=== PATIENT | female | born 1995 | race Two or more races ===

== ENCOUNTER 2021-12-22 03:06 | Inpatient (IN) ==
[2021-12-22] MEDS ORDERED: OXYTOCIN 30 UNITS/500 ML BAG IV PRN ×2 (03:33→10:51)
[2021-12-22] MEDS: LACTATED RINGER'S 1,000 ML IV PRN ×2 (03:45→04:45)
[2021-12-22 03:54] LABS: Hematocrit (blood only) 37.3 % (37-47); Hemoglobin 12.6 g/dL (12.0-16.0); Mean Corpuscular Hemoglobin 28.8 pg (25-34); Mean Corpuscular Hgb Conc 33.8 g/dL (32-36); Mean Corpuscular Volume 85.4 fL (80-100); Mean Platelet Volume 9.5 fL (7.4-10.4); Platelet Count 243 K/uL (130-400); RDW Coefficient of Variation 13.6 % (11.5-14.5); RDW Standard Deviation 42.2 fL (36.4-46.3); Red Blood Count 4.37 M/uL (4.2-5.4); White Blood Count 6.34 K/uL (4.8-10.8)
[2021-12-22] MEDS ORDERED: fentaNYL citrate 100 MCG/2 ML VIAL ONE (04:34)
[2021-12-22] MEDS ORDERED: ePHEDrine sulfate 50 MG/ML AMP ONE (04:34)
[2021-12-22] MEDS ORDERED: SODIUM CHLORIDE 0.9% INJ 10 ML VIAL ONE (04:34)
[2021-12-22] MEDS ORDERED: fentaNYL 2MCG/ML ROPIVACAINE 1.25MG/ML 100 ML BAG EPI ONE (04:35)
[2021-12-22] MEDS ORDERED: BUPIVACAINE 0.25% 30 ML VIAL ONE (04:35)
[2021-12-22] MEDS ORDERED: ONDANSETRON INJ 2 MG/ML 2 ML VIAL IV PRN (04:48)
[2021-12-22] MEDS ORDERED: NALOXONE HCL 0.4 MG/1 ML VIAL/CARP IV PRN (04:48)
[2021-12-22] MEDS ORDERED: diphenhydrAMINE 50 MG/ML VIAL IV PRN (04:48)
[2021-12-22] MEDS ORDERED: NALBUPHINE HCL INJ 10 MG/ML AMP IV PRN (04:48)
[2021-12-22] MEDS ORDERED: NALOXONE HCL 1 MG in SODIUM CHLORIDE 0.9% 1000ML 1,000 ML IV PRN (04:48)
[2021-12-22] MEDS ORDERED: ePHEDrine sulfate 50 MG/ML AMP IV PRN (04:48)
[2021-12-22] MEDS ORDERED: fentaNYL 2MCG/ML ROPIVACAINE 1.25MG/ML 100 ML BAG EPI PRN (04:48)
--- NOTE | 2021-12-22 04:52 | Anesthesiology Consultation ---
Date of Service December 22, 2021 Assessment & Plan Chart Review Chart Review: Patient NOT seen in Pre Admission Testing and Acceptable Risk for Labor Epidural Consults Requested none ASA ASA2 Proposed Anesthesia Anesthesia Type: Labor Epidural and CSE Risk / Benefits Reviewed With: PT / POA / Parent / Guardian, Accepts Plan and Informed Consent Obtained History Height/Weight Height: 5 ft 4 in Weight: 68.492 kg Allergies Allergy/AdvReac Type Severity Reaction Status Date / Time No Known Allergies Allergy Verified 12/15/21 10:29 Medications Home Medications Medication Instructions Recorded Confirmed Last Taken prenat.vits,venancio,nxe-hclo-fegpi 1 tab PO DAILY 04/20/21 12/22/21 12/21/21 17:00 Active Medications Generic Name Dose Route Start Last Admin Trade Name Freq PRN Reason Stop Dose Admin Lactated Ringer's 1,000 mls @ 125 mls/hr 12/22/21 03:33 12/22/21 04:45 Lr IV 12/24/21 03:32 125 mls/hr .Q8H PRN Administration L&D Protocol Protocol NPO Date Last Intake of Fluids: 12/21/21 Time Last Intake of Fluids: 19:00 Date Last Intake of Solids: 12/21/21 Time Last Intake of Solids: 19:00 Past Medical History Medical History Varicella vaccination Exercise / Class Metabolic Activity II 4-5 Yardwork/Stairs/Walk up hill Past Family History Family History Mother Diabetes Denies family history of Ovarian cancer Breast cancer Colorectal cancer Past Surgical History Surgical History S/P tooth extraction dental implant Past Anesthesia History No Hx of Anesthesia Complications and No Family Hx of Anesthesia Complications History of PONV No Hx of PONV and No Hx of Motion Sickness Social History Smoking Status: Never smoker Hx Alcohol Use: No Hx Substance Use: No substance use type: does not use and former substance user Review of Systems no chest pain or sob Physical Exam Vital Signs Last Vital Signs Temp 37.3 C 12/22/21 03:56 Pulse 75 12/22/21 04:47 Resp 20 12/22/21 03:56 BP 123/83 12/22/21 03:56 Pulse Ox 100 03/24/22 04:47 ENMT Mouth: no TMJ abnormality Thyromental Distance: > or= 3.5 Finger Breadths Mallampati Class: II Neck normal visual inspection Respiratory normal respiratory effort Auscultation: lungs clear to auscultation bilaterally Cardiovascular Rate/Rhythm: regular rate and regular rhythm Musculoskeletal Spine: normal cervical ROM Neurologic moves all extremities Psychiatric Orientation: alert and oriented x 3 Testing Laboratory Results 12/22/21 03:42
--- NOTE | 2021-12-22 08:50 | History & Physical Report ---
Date of Service December 22, 2021 Assessment & Plan (1) Encounter for induction of labor: Plan: 26-year-old primigravida w/ complicated by two-vessel cord, presenting to L&D at 40.4 WGA for IOL for postdates . * GBS-, RI, Rh+ * Admit to L&D * NPO except sips and chips * Pitocin PRN * Pt. receiving epidural * Maintenance IVF: Lactated Ringer's at 125 mL * Continuous electronic heart monitoring * Full Code * Anticipate Admission and Anticipated Discharge Date Admission Date: December 22, 2021 History of Present Illness Primary Care Provider: [facility] Pat is a 26-year-old currently at 40.4 WGA with an TAMIA 12/18/2021 as determined by Ultrasound who is here for induction for postdates . Denies contractions; + movement; no fluid loss; + bloody show. Had regular appointments with OB. Labs: 12/22/2021 Blood type: B+ Antibody screen: Negative H.6 Hct: 37.3 WBC: 6.34 Plt: 243 Rubella: Immune VDRL/RPR: Nonreactive Gonorrhea: Not detected Chlamydia: Not detected HIV: Negative HbSAg: Negative GBS: Negative Other screens: cff-DNA: Declined CF: Declined SMA: Declined Allergies Allergy/AdvReac Type Severity Reaction Status Date / Time No Known Allergies Allergy Verified 12/15/21 10:29 Home Medications Medication Instructions Recorded Confirmed Type prenat.vits,venancio,axn-aula-xiibe 1 tab PO DAILY 04/20/21 12/22/21 History Patient History Medical History Varicella vaccination Surgical History S/P tooth extraction dental implant Family History Mother Diabetes Denies family history of Ovarian cancer Breast cancer Colorectal cancer Social History Smoking Status: Never smoker Hx Alcohol Use: No Hx Substance Use: No Preferred Language: Indonesian Communication Ability: Effective Production Control Technologist Required: No Beliefs That Will Affect Care: None marital status: marital status details: Silviano Saunders(30) [phone] Current Living Situation: Spouse Current Living Situation Comment: lives with spouse, no pets current occupational status: student current occupation: Grad Student [employer] Feels Safe at Home: Yes Safety Concerns: Feels Safe At This Time Assistive Devices: None Physical Exam Physical Exam: General: Alert, oriented. No acute distress. Cardiac: Regular rate and rhythm, no murmurs/rubs/gallops. Respiratory: Clear to auscultation bilaterally a/p, no wheezes/rales/rhonchi. No increased work of breathing. Symmetrical chest rise. No respiratory distress. Pelvic: Dilation 10 cm; Effacement 100%; Station +3, per Dr. Ennis. Lower Extremities: No lower extremity edema or swelling. No deep calf pain. Ashok's negative bilaterally Baseline: 150s Variability: Moderate Accelerations: 10+ Decelerations: 3+ Results & Data ([facility]) Vital Signs (Past 12 Hours) Vital Signs Temp Pulse Resp BP Pulse Ox 12/22/21 08:49 73 92 12/22/21 08:47 73 97 12/22/21 08:46 113 H 144/93 H 12/22/21 08:42 70 97 12/22/21 08:37 62 100 12/22/21 08:32 89 138/64 99 12/22/21 08:27 74 96 12/22/21 08:25 71 92 12/22/21 08:22 82 99 12/22/21 08:17 93 H 98 12/22/21 08:16 88 113/85 12/22/21 08:12 75 97 12/22/21 08:07 74 99 12/22/21 08:02 69 100 12/22/21 08:01 66 123/76 12/22/21 07:57 77 99 12/22/21 07:52 98 H 95 12/22/21 07:47 73 100 12/22/21 07:46 80 118/65 12/22/21 07:42 70 100 12/22/21 07:37 67 100 12/22/21 07:32 90 79 L 12/22/21 07:30 91 H 108/82 12/22/21 07:27 86 80 L 12/22/21 07:26 110 H 87 L 12/22/21 07:22 86 100 12/22/21 07:17 93 H 100 12/22/21 07:16 75 103/74 12/22/21 07:12 84 95 12/22/21 07:10 71 93 12/22/21 07:07 79 66 L 12/22/21 07:05 66 85 L 12/22/21 07:02 73 100 12/22/21 07:00 36.7 C 83 20 114/76 12/22/21 06:57 81 92 12/22/21 06:52 112 H 100 12/22/21 06:47 80 100 12/22/21 06:46 66 91 12/22/21 06:42 78 96 12/22/21 06:37 66 100 12/22/21 06:36 72 92 12/22/21 06:32 69 98 12/22/21 06:31 68 88 L 12/22/21 06:30 65 112/78 12/22/21 06:27 62 91 12/22/21 06:25 62 91 12/22/21 06:22 74 98 12/22/21 06:19 67 94 12/22/21 06:17 82 100 12/22/21 06:15 67 115/79 12/22/21 06:13 81 93 12/22/21 06:12 79 100 12/22/21 06:07 62 100 12/22/21 06:02 67 100 12/22/21 06:00 67 109/68 12/22/21 05:57 61 100 12/22/21 05:52 63 100 12/22/21 05:51 92 H 93 12/22/21 05:47 77 97 12/22/21 05:46 79 119/84 12/22/21 05:42 78 95 12/22/21 05:37 74 98 12/22/21 05:36 71 94 12/22/21 05:32 75 99 12/22/21 05:31 80 93 12/22/21 05:27 74 99 12/22/21 05:25 77 113/73 12/22/21 05:22 77 100 12/22/21 05:21 86 116/70 12/22/21 05:17 80 92 12/22/21 05:15 77 127/62 94 12/22/21 05:12 90 99 12/22/21 05:11 76 133/72 12/22/21 05:09 73 123/68 12/22/21 05:07 37.1 C 78 20 128/63 97 12/22/21 05:06 82 91 12/22/21 05:02 80 99 12/22/21 04:59 82 92 12/22/21 04:57 89 100 12/22/21 04:56 78 139/71 12/22/21 04:54 77 89 L 12/22/21 04:52 83 100 12/22/21 04:47 75 100 12/22/21 04:45 81 92 12/22/21 04:42 79 100 12/22/21 04:39 86 92 12/22/21 04:37 77 100 12/22/21 04:32 70 100 12/22/21 04:27 70 100 12/22/21 04:22 73 100 12/22/21 04:17 81 100 12/22/21 04:12 72 100 12/22/21 04:07 81 100 12/22/21 03:56 37.3 C 75 20 123/83 12/22/21 03:13 37.3 C 75 20 123/83 Supervising Physician Co-Signing Physician Notes Resident Physician Supervision Note: I interviewed and examined the patient. Discussed with [Name of resident] and agree with findings and plan as documented in the note. Any exceptions or clarifications are listed here: [None] Documented By: Jose A Ennis MD, FACOG Resident Activity Tracking Resident Involvement: Resident Care Provided Care Provided: OB Delivery
[2021-12-22] MEDS ORDERED: HYDROCORTISONE ACETATE 25 MG SUPP PR PRN (10:51)
[2021-12-22] MEDS ORDERED: bisacodyL 10 MG SUPP PR PRN (10:51)
[2021-12-22] MEDS ORDERED: ACETAMINOPHEN 325 MG TAB PO PRN (10:51)
[2021-12-22] MEDS ORDERED: DIPHTHERIA/TETANUS/PERTUSSIS 0.5 ML SYR/VIAL IM ONE (10:51)
[2021-12-22] MEDS ORDERED: BENZOCAINE 20% AER SPR 82.5 GM CAN EXT PRN (10:51)
--- NOTE | 2021-12-22 12:36 | Anesthesia Procedure Note ---
Date of Service December 22, 2021 Anesthesia Post Epidural Note Vital Signs Vital Signs: Temp Pulse Resp BP Pulse Ox 36.9 C 125 H 20 103/62 99 12/22/21 09:09 12/22/21 12:30 12/22/21 09:09 12/22/21 12:30 12/22/21 09:53 Notes Mental Status: alert / awake / arousable Nausea / Vomiting: adequately controlled Pain: adequately controlled Airway Patency, RR, SpO2: stable & adequate BP & HR: stable & adequate Hydration State: stable & adequate Neuraxial Anesthesia: was administered and sensory block is resolving Anesthetic Complications: no major complications apparent and Pt Satisfied with anesthetic care Epidural: Removed without complications and With tip intact
[2021-12-22] MEDS: IBUPROFEN 600 MG TAB PO PRN ×2 (13:57→21:19)
--- NOTE | 2021-12-22 20:07 | Delivery Summary ---
DATE OF SERVICE: 12/22/2021 PROCEDURE: Normal spontaneous vaginal delivery with second-degree perineal laceration repair and a r ight vaginal wall laceration repair. SURGEON: Avinash Anaya MD. PREOPERATIVE DIAGNOSES: 1. Single intrauterine at 40 weeks 4 days gestational age. 2. Spontaneous labor. 3. Two-vessel cord. POSTOPERATIVE DIAGNOSES: 1. Single intrauterine at 40 weeks 4 days gestational age. 2. Spontaneous labor. 3. Two-vessel cord. 4. Status post procedure. ESTIMATED BLOOD LOSS: 300 mL. DRAINS: None. FLUIDS: Continuous lactated Ringer. URINE OUTPUT: Via straight cath for 800+ mL. FINDINGS: Viable with weight and Apgars pending. DESCRIPTION OF PROCEDURE: The patient progressed to 10 cm dilated, 100% effaced, positive 2 station, pushed over intact perineum with epidural anesthesia, delivered a viable with weight and Apg ars as noted above. Head of the delivered in DINO position, restituted to right transverse. Nuchal cord x1 was noted, which was easily reduced. Body and shoulders quickly followed. wa s noted to be vigorous soon after delivery and a 1 minute delayed cord clamping was initiated. Cord was then double clamped and cut. Attention was then turned to delivery of the placenta, which was de livered intact, 3-vessel cord, gentle cord traction. On inspection of the perineum, vagina, cervix, there was noted to be a second-degree perineal laceration and a right sidewall vaginal laceration. T he perineal laceration was repaired with 3-0 Vicryl in a traditional crown stitch. Vaginal laceratio n repaired with 3-0 Vicryl in interrupted stitch. Needle, sponge, and instrument counts were correct at the completion of the case. Both mother and were stable in the immediate post-delivery p derek. Job ID: [id number]
[2021-12-22] MEDS: DOCUSATE SODIUM 100 MG CAP PO SCH (21:19)
[2021-12-23 07:12] LABS: Hematocrit (blood only) 29.6 % (37-47); Mean Corpuscular Hgb Conc 33.8 g/dL (32-36); Mean Corpuscular Volume 85.8 fL (80-100); Mean Platelet Volume 9.3 fL (7.4-10.4); Platelet Count 221 K/uL (130-400); RDW Coefficient of Variation 13.9 % (11.5-14.5); RDW Standard Deviation 43.2 fL (36.4-46.3); Red Blood Count 3.45 M/uL (4.2-5.4); White Blood Count 9.12 K/uL (4.8-10.8)
--- NOTE | 2021-12-23 07:50 | Obstetrical Progress Note ---
Date of Service <Tena Winn MD - Last Filed: 12/23/21 07:50> December 23, 2021 Assessment & Plan <Tena Winn MD - Last Filed: 12/23/21 07:50> (1) Encounter for care and examination after delivery: PPD 1: stable, routine management * patient voiding and ambulating without difficulty * pain well controlled on analgesia * tolerating regular diet * * anticipate d/c today * 6-week OB outpatient follow-up <Avinash Anaya MD - Last Filed: 12/23/21 07:55> (1) Encounter for care and examination after delivery: Subjective <Tena Winn MD - Last Filed: 12/23/21 07:50> Pat is a 26 y/o female who is now PPD 1 following spontaneous vaginal delivery at 40.4 weeks. Reports feeling well overall this morning. Mild cramping pain well managed on analgesics. Voiding well. Tolerating meals well and able to ambulate on her own without dizziness, shortness of breath, or pain in her legs. + Passing gas bleeding is about the same this morning. Breast- feeding. Review of Systems Denies fever, chills, sweats Denies shortness of breath, difficulty breathing, chest pain, palpitations, chest pressure. Denies breast pain. Denies dysuria. Denies headache or changes in vision Physical Exam <Tena Winn MD - Last Filed: 12/23/21 07:50> General: Alert, oriented. No acute distress. Cardiac: Regular rate and rhythm, no murmurs/rubs/gallops. Respiratory: Clear to auscultation bilaterally a/p, no wheezes/rales/rhonchi. No increased work of breathing. Symmetrical chest rise. No respiratory distress. Abdomen: Soft, nontender, nondistended. Bowel sounds present. Uterus: Uterine fundus firm, palpable 1 cm below umbilicus. Lower Extremities: No lower extremity edema or swelling. No deep calf pain. Ashok's negative bilaterally.. Results & Data ([facility]) <Tena Winn MD - Last Filed: 12/23/21 07:50> Vital Signs (Past 12 Hours) Vital Signs Temp Pulse Resp BP Pulse Ox 12/23/21 03:10 36.7 C 73 18 92/63 L 99 12/22/21 23:30 37.0 C 90 18 98/65 L 98 12/22/21 20:50 37.1 C 90 18 103/70 97 <Avinash Anaya MD - Last Filed: 12/23/21 07:55> Co-Signing Physician Notes Patient seen and evaluated and agree with the above findings and plan. Stable for discharge Resident Activity Tracking <Tena Winn MD - Last Filed: 12/23/21 07:50> Resident Involvement: Resident Care Provided Care Provided: OB Delivery
[2021-12-23] MEDS: DOCUSATE SODIUM 100 MG CAP PO SCH (07:51)
[2021-12-23] MEDS: IBUPROFEN 600 MG TAB PO PRN ×2 (07:52→13:03)
[2021-12-23] MEDS ORDERED: PRENATAL VITAMIN 1 TAB PO SCH (08:00)
[2021-12-23] MEDS ORDERED: bisacodyL 5 MG TABEC PO SCH (20:00)
== END 2021-12-23 16:30 | disposition home or self-care (01) | DRG 807 ==
LOC: OPB 03:06 → 4S1 03:11 → 4E2 14:52
DX: O70.0 First degree perineal laceration during delivery; O70.1 Second degree perineal laceration during delivery; O48.0 Post-term pregnancy; Z83.3 Family history of diabetes mellitus; Z37.0 Single live birth; Z3A.40 40 weeks gestation of pregnancy